=== PATIENT | female | born 1985 | race Caucasian/White ===

== ENCOUNTER 2019-05-28 09:24 | Inpatient (IN) | payer SELFPAY ==
[2019-05-28] MEDS ORDERED: Fentanyl 100 MCG/2 ML VIAL ONE ×2 (12:07→18:45)
[2019-05-28] MEDS ORDERED: cefTRIAXone\\ROCEPHIN 2 GM VIAL ONE (12:08)
[2019-05-28] MEDS ORDERED: Sodium Chloride 0.9% 200 ML ONE (12:08)
[2019-05-28] MEDS ORDERED: Azithromycin 500 MG VIAL ONE (12:08)
[2019-05-28 12:16] LABS: Bilirubin Negative (Negative); Blood, Urine Trace (Negative); Clarity Clear (Clear); Glucose, Urine (Dipstick) Normal (Negative); Leukocyte Negative Leu/uL (Negative); Nitrite Negative (Negative); Protein, Urine (Dipstick) 50 mg/dL (Neg-Trace)
[2019-05-28 12:25] LABS: Hemoglobin 14.5 g/dL (12.0-16.0); Mean Corpuscular HGB CONC 32.3 g/dL (32.0-36.0); Mean Corpuscular Hemoglobin 29.4 pg (27.0-31.0); Platelet Count 187 thou/uL (130-400); RBC Distribution Width 13.2 % (11.5-14.5); Red Blood Cell (RBC) Count 4.93 mill/uL (4.20-5.40); White Blood Cell (WBC) Count 6.9 thou/uL (4.8-10.8)
[2019-05-28 12:25] LABS: Bacteria/HPF None Seen HPF (None Seen)
[2019-05-28 12:40] LABS: Band 22 % (5-11); Lymphocytes 15 % (21-51); MDiff Complete? YES; Monocytes 4 % (0-10); Neutrophil 58 % (42-75); Platelet Morphology Comment Appears Adequate; RBC Morphology Normal; Vacuoles SLIGHT
[2019-05-28] MEDS ORDERED: Acetaminophen 500 MG TAB ONE ×2 (13:01→19:59)
[2019-05-28 13:19] LABS: Pregnancy Test - Urine (BHCG) Indeterminate (Negative)
[2019-05-28 13:20] LABS: Specific Gravity Greater than 1.060 (1.002-1.036)
[2019-05-28 13:21] LABS: Pregu Control Bar Appear? NO (CONTROL BAR)
[2019-05-28] MEDS ORDERED: Ondansetron PF 4 MG/2 ML Vial ONE (13:48)
[2019-05-28 14:14] LABS: BHCG - Serum Negative (NEGATIVE); Pregs Control Background? CLEAR/WHITE (CLR/WHITE); Pregs Control Bar Appear? YES (CONTROL BAR)
[2019-05-28] MEDS ORDERED: Magnevist 469MG/ML 20 ML VIAL ONE (15:37)
--- NOTE | 2019-05-28 17:04 | MRI ---
MRI Abdomen W WO Con History: Abdominal pain. Comparison: CT angiogram chest same day Findings: Multiplanar multisequence MRI of the abdomen was performed prior to and after the intraveno us administration of contrast. No pleural effusion. No hydronephrosis. Adrenal glands unremarkable. No intrahepatic or extrahepatic biliary dilatation. 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 There is an ill-defined area of abnormal hyperenhancement in hepatic segment VIII which corresponds to abnormal signal on the out of phase T1 sequence with the remainder the adjacent liver losing signal. This masslike area of the hepatic segment VIII corresponds to the CT angiogram findings. No associated T2 signal. Adrenal glands are unremarkable. No hydronephrosis. No dilated loops of bowel in the abdomen. Impression: 1. 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 There is also likely a component of portal venous shunting. Follow-up liver protocol MRI in 6 months recommended to evaluate for change. 2. 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 Transcribed Date/Time: 05/28/2019 6:46 PM
[2019-05-28] MEDS ORDERED: Enoxaparin Sodium 100 MG/ML SYRINGE ONE (19:12)
[2019-05-28] MEDS ORDERED: Fentanyl 100 MCG/2 ML VIAL SLOW IVP PRN (21:37)
[2019-05-28] MEDS ORDERED: Piperacillin/Tazobactam 4.5 GM in Sodium Chloride 0.9% 100 ML IVPB SCH (21:45)
[2019-05-28] MEDS ORDERED: Lactated Ringer's 1,000 ML IV SCH (21:45)
[2019-05-28] MEDS ORDERED: Guaifenesin DM 100-10/5 ML UDCUP PO PRN (21:57)
[2019-05-28 22:13] VITALS: BMI 30.2
--- NOTE | 2019-05-28 23:11 | HP ---
PRIMARY CARE PHYSICIAN: Hanna Red DO. CHIEF COMPLAINT: Chest pain, back pain, upper respiratory symptoms x2. HISTORY OF PRESENT ILLNESS: This is a 33-year-old obese female smoker, with no reported chronic medical comorbidities, who presented to a tertiary ER in [place] for 2-day history of upper respiratory tract symptoms associated with chest pain and back pain, prompting further evaluation. 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 Furthermore, she reports her daughter recently had the flu. She reports Friday having bifrontal headaches and a left-sided earache and took some Sudafed at night. She also notes associated complaints of sore throat, chest congestion, subjective fevers, complaints of myalgias but denies any rhinorrhea, nausea, vomiting, diarrhea. She slept all day and took NyQuil overnight and evening experiencing pain in her mid to upper back. This morning she had some productive yellowish phlegm and sought evaluation and called the ER. While there, she noted some sharp pain in her mid to upper abdomen. She reports being increasingly sedentary over the last several days, but denies any lower extremity pain or swelling. She denies any dyspnea. She reports sores in her mouth. In the emergency room, workup with a chest x-ray was unremarkable. CTA was negative for pulmonary embolism and suggested possibly a mild haziness in the right upper lobe, but incidentally noted a 3.7 cm enhancement in the liver dome. Recommending further dedicated CT versus MRI if clinically necessary. CBC was unremarkable, but differential did reveal 22 bands. Chemistries were unremarkable and the hCG was negative. Urinalysis; specific gravity was greater than 1.060. The patient was administered Rocephin and Zithromax and transferred to [facility] [place]. 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 Liver function test was unremarkable. The patient was administered weight-based Lovenox injection and IV Zosyn and IV fentanyl. On-call GI and Hematology/Oncology were consulted. At bedside, the patient denies any complaints of abdominal pain at this time. Her predominant complaints are upper respiratory tract symptoms and cough and congestion. She notes her father has a history of blood clots approximately 3 years ago in his late 40s, but it is reported by her ER physician that a prior hypercoagulable workup was negative. The patient denies any personal history of venous thromboembolism. She denies any recent travel or complains of hemoptysis. She did not receive her influenza vaccine this season. PAST MEDICAL HISTORY: Obesity, nicotine dependence. PAST SURGICAL HISTORY: Cholecystectomy. Last menstrual period, early April 2019. The patient is a G2, P1. SOCIAL HISTORY: The patient smokes one-half pack per day. She denies any alcohol or illicit drug use. She lives with her family, 12-year-old child and siblings. REVIEW OF SYSTEMS: Pertinent positives as per HPI. Remainder of review of systems negative. HOME MEDICATIONS: Reviewed as per admission medication reconciliation. FAMILY HISTORY: The patient reports her father had lower extremity thrombus in his late 40s. PHYSICAL EXAMINATION: VITAL SIGNS: Temperature 101.4, pulse 96-111, blood pressure 111/72, oxygen saturation 96% on room air, respirations 16-18. GENERAL APPEARANCE: This is a young female who is awake, alert, oriented, coherent, lucid, nontoxic in appearance, speaking in full complete sentences. HEENT: Normocephalic, atraumatic. No facial asymmetry. Pupils equally round. Extraocular muscles intact. Moist mucous membranes. There is excoriations noted in the tongue as well as in the roof of the soft palate. There is posterior pharyngeal erythema with increased vascularity noted in the posterior pharynx. There is increased erythema on bilateral air canals with no tragus tenderness to palpation. NECK: Supple. CARDIOVASCULAR: S1, and S2. Regular rate and rhythm. No harsh murmurs. No reproducible chest wall tenderness to palpation. LUNGS: Bilateral equal air entry on posterior auscultation. Nonlabored respirations. No wheezing or rales. Symmetrical chest expansion. ABDOMEN: Soft, nondistended, nontender to deep palpation in the epigastrium, right upper quadrant. Normoactive bowel sounds. EXTREMITIES: No edema, cyanosis, or deformities, bilateral upper and lower extremities. SKIN: Warm to touch without rash, pallor, or abrasion. LABORATORY VALUES: WBC 6.9, H and H 14.5/44.8, platelets 187. Differential; 58 neutrophils, 22 bands. Urinalysis; specific gravity greater than 1.060 with 50 protein, 20 ketones, 2.0 urobilinogen, trace blood. test negative. Chemistry; sodium 137, potassium 3.6, chloride 104, bicarb 23, glucose 105, BUN creatinine 9/0.87, GFR 76, total bilirubin 0.4, alkaline phosphatase 61, lipase 33. Albumin 4.1, CK 76, AST 30, AST 37, ALT 43, alkaline phosphatase 61. Serum test negative x2. Troponin I negative x1. IMAGING DATA: One-view chest x-ray on 05/28/2019, reveals no acute thoracic findings. CTA chest and thorax from 05/28/2019, reveals [id number] sensitivity showing no evidence of PE. No major infiltrate although tiny patchy area in right upper lobe. Enhancing lesion in the dome of the right lobe of the liver with the main part measuring by 3.7 cm in size and may have an adjacent part to it, most likely hemangioma, possibly more than 1 with MRI recommended as followup to best characterized findings. 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 There is also likely a component of portal venous shunting. Recommended MRI follow up liver protocol in 6 months for evaluation of change. Findings also concerning for an intraluminal web at the distal main portal vein extending into the right portal vein suggesting a partially recanalized peripheral portal vein. ASSESSMENT: 1. Upper respiratory tract infection of unspecified etiology. The patient reports a prodrome of upper respiratory tract symptoms and exposure to sick contacts. We will check an influenza panel and a strep throat culture. She received empiric IV Rocephin and IV Zithromax at tertiary ER and has received IV Zosyn in our ER. We will continue empiric antibiotics at this time and further supportive therapies. Noted unremarkable CBC but with evidence of bandemia and fevers. 2. Suspected portal vein thrombus with possible infectious component. The patient had noted findings on CTA chest suggesting hyperintensity in liver and a followup MRI was done with results noted showing concerns for portal vein thrombosis with collateralization. Liver function tests unremarkable. The patient's pain is not severe at this time. However, she endorses history of venous embolism in her father and reported complaints of immobility. We will continue weight-based Lovenox injections. ER has consulted GI and Hematology/Oncology for further assessment. We will continue empiric antibiotics in the setting of unspecified fevers. Unremarkable CBC, but noted evidence of bandemia. Continue IV Zosyn for empiric intraabdominal coverage. If prolonged antibiotics need to be considered, a PICC line may be necessary and we will hold off on any oral anticoagulation at this time. 3. Nicotine dependence. The patient requires cessation counseling. 4. History of deep venous thrombosis in patient's father in late 40s. Details are vague and unspecified. Per discussion with ER physician, hypercoagulable workup was unremarkable. 5. Deep venous thrombosis prophylaxis: Therapeutic anticoagulation. 6. Check a.m. labs, 05/29/2019. 7. Code status: Full code. 8. Disposition: Inpatient Med/Surg admission. Job ID: [id number]
[2019-05-28] MEDS ORDERED: Sodium Chloride 0.65% Nasal 44 ML BOT EA NARE PRN (23:43)
[2019-05-29] MEDS ORDERED: Ibuprofen 600 MG TAB PO PRN (01:50)
[2019-05-29] MEDS ORDERED: Oseltamivir 75 MG CAP PO SCH (02:00)
[2019-05-29 06:29] LABS: #Lymphocytes 1.2 thou/uL (1.20-3.40); #Monocytes 0.3 thou/uL (0.11-0.59); #Neutrophils 4.1 thou/uL (1.40-6.50); %Basophils 0.5 % (0.0-1.0); %Eosinophils 0.5 % (0.0-10.0); %Monocytes 5.2 % (0.0-10.0); %Neutrophils 72.7 % (42.0-75.0); Hemoglobin 13.9 g/dL (12.0-16.0); Mean Corpuscular HGB CONC 32.1 g/dL (32.0-36.0); Mean Corpuscular Hemoglobin 29.4 pg (27.0-31.0); Mean Corpuscular Volume 91.6 fL (78.0-98.0); Mean Platelet Volume 8.9 fL (7.4-10.4); Platelet Count 171 thou/uL (130-400); RBC Distribution Width 13.1 % (11.5-14.5); Red Blood Cell (RBC) Count 4.73 mill/uL (4.20-5.40); White Blood Cell (WBC) Count 5.7 thou/uL (4.8-10.8)
[2019-05-29 06:54] LABS: ALT (SGPT) 25 U/L (8-55); AST (SGOT) 22 U/L (5-34); Albumin 3.2 g/dL (3.5-5.0); Alkaline Phosphatase 50 U/L (40-110); Anion Gap 10 mmol/L (10-20); BUN (Urea Nitrogen) 5 mg/dL (7.0-18.7); Bilirubin, Total 0.3 mg/dL (0.2-1.2); Calc. Creatinine Clearance 165 mL/min (70-130); Calcium 7.7 mg/dL (7.8-10.44); Carbon Dioxide 20 mmol/L (22-29); Chloride 107 mmol/L (98-107); Estimated GFR-MDRD Greater than 90; Globulin 2.6 g/dL (2.4-3.5); Glucose 91 mg/dL (70-105); Potassium 3.3 mmol/L (3.5-5.1); Protein, Total 5.8 g/dL (6.0-8.3); Sodium 134 mmol/L (136-145)
[2019-05-29] MEDS: Oseltamivir 75 MG CAP PO SCH ×2 (08:32→20:39)
[2019-05-29] MEDS ORDERED: traMADol HCl 50 MG TAB PO PRN (08:36)
[2019-05-29] MEDS ORDERED: Enoxaparin Sodium 100 MG/ML SYRINGE SC SCH (09:00)
[2019-05-29] MEDS: traMADol HCl 50 MG TAB PO PRN ×2 (10:00→20:42)
[2019-05-29] MEDS: diphenhydrAMINE 50 MG/ML VIAL IVP PRN ×2 (10:03→20:42)
[2019-05-29] MEDS: Ondansetron PF 4 MG/2 ML Vial IVP PRN (11:11)
[2019-05-29 15:03] LABS: PTT 31.4 SEC (22.9-36.1); Prothrombin Time 12.7 SEC (12.0-14.7)
[2019-05-29 15:04] LABS: D-Dimer Test 0.31 *mcg/mL (0.27-0.43)
--- NOTE | 2019-05-29 15:59 | CON ---
DATE OF CONSULTATION: REASON FOR CONSULTATION: Questionable portal vein thrombosis, fever. HISTORY OF PRESENT ILLNESS: Ms. Gauthier is a 33-year-old female, who was called by the ER last night, reporting that she had portal vein thrombosis, fever, abdominal discomfort. On getting further details, it seemed that she did not have an acute thrombosis, but had had possible recanalization of portal vein based on an MRI test. History was not very good, and empirically, she had cultures drawn and was placed on blood thinners and antibiotics. Subsequently, she had a flu test, which has come back positive for influenza A. In talking with her, she states that starting Friday, which is 3 days ago, she went home from work with a headache and then awoke with sore throat, scratchy mucosal membranes, myalgias, arthralgias especially in the legs and upper back, and fever and chills. She developed a cough as well. Her daughter had the flu about 2 weeks ago. She took some Nyquil, and then when she woke up yesterday, she had some upper back pain right below her neck and had a productive cough and went to the emergency room in [place]. There, she had some labs and then a CT angio of the chest was done to make sure she did not have a pulmonary embolus presumptively and this raised questions about abnormalities in the right lobe of the liver. CBC did show 22 bands with normal white count. test was negative. Urinalysis was negative except for signs of dehydration. She was given Rocephin and Zithromax and sent to the emergency room here in [place]. 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 Additionally, on that study, there were concerns of a web or partial recanalization of the right portal vein. There are no signs of portal hypertension. Her liver function tests were normal. When she was admitted, the hospitalist saw her, I got the history of the URI like symptoms and got a flu test, which was positive, and the actual diagnosis for why she came to the emergency room in [address] was ultimately made. Presently, she is feeling better today, although she does still have some cough. She is holding down liquids. She has had no diarrhea. She denies any history of recurrent abdominal pain now or in the past except for some very mild discomfort earlier yesterday. She denies any history of abnormal imaging of the liver or abdomen. She reports she had a gallbladder removed in this hospital about 10 years ago and had been sick for about 6 months before that. She denies any history of appendicitis or pelvic infections. She does smoke, but denies taking control pills or having IUD. She denies any prior history of blood clots that she knows of. Her father had blood clot in his leg in his 50s. The patient did not receive a flu vaccine this year. PAST MEDICAL HISTORY: She is a little bit overweight. She denies other medical problems. She smokes half pack per day. PAST SURGICAL HISTORY: Cholecystectomy. 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 SOCIAL HISTORY: She smokes half pack per day. She does not drink alcohol. She does not use drugs. She lives with her family, 12-year-old child and siblings. 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 REVIEW OF SYSTEMS: As per HPI. She is not short of breath now. She is still having some fevers at times. She feels she is breathing well. She has no dysuria. She has no abdominal pain, nausea, or vomiting. HOME MEDICATIONS: None. MEDICATIONS HERE: 1. Tylenol. 2. Benadryl. 3. Robitussin. 4. Ibuprofen. 5. Zofran. 6. She received a dose of Tamiflu. 7. She is receiving some Ultram. 8. IV fluids. 9. She is receiving Zosyn and full-dose anticoagulation with Lovenox, both of which have been stopped now by Hematology. PHYSICAL EXAMINATION: VITAL SIGNS: Pulse anywhere from 99 to 106, temperature max 101 to 100 presently, respirations 18, saturation 94%, blood pressure 98/63 to 93/60. GENERAL: She is warm to the touch. HEENT: Oropharynx was slightly erythematous. LUNGS: Notable for rhonchi in the bases. HEART: Sinus tachycardia. ABDOMEN: Soft and nontender with no rebound or guarding. There is very mild right-sided abdominal tenderness. She reports this is where she had her Lovenox shot recently. There is no bruising. There is no palpable hepatosplenomegaly. There is no CVA tenderness. EXTREMITIES: No clubbing, cyanosis, or edema. SKIN: Without rashes or lesions. LABORATORY DATA: White count 5.7, hemoglobin 13.9, platelet count 171, bands are 22% last night at 1212 hours. She had a hemoglobin of 15.4 yesterday on presentation yesterday morning. INR is 1. D-dimer was 0.8 yesterday at the outside ER. Sodium 134, potassium 3.3, BUN and creatinine 5 and 0.6. Liver function tests are normal. Protein is 5.8 and albumin 3.2. Serum test negative. IMAGING TESTS: CAT scan of the chest and the MRI reports reviewed and images reviewed with Radiology for about 20 minutes. ASSESSMENT: This is a 33-year-old, who came to the hospital for the flu. She has some respiratory symptoms, probably has some pneumonitis as well. She had some fever. She is a bit dehydrated. The findings on the MRI, which were precipitated by some findings in the liver on a PE protocol CT, likely all related to vascular anomalies of her aberrant arterial circulation in the hepatic artery on the left side where the left hepatic artery comes in the left gastric artery. There is some finding of some portal venous shunting going on as well that gives the appearance of abnormalities of mass, which does not hold up on imaging studies and portal venous arterial phases. There is one concerning feature of her MRIs that she may have a web or findings that look like a previous clot with recanalization in the right portal system. The only really risk factor she has for this is she had a pretty bad gallbladder disease many years ago, but she is not aware of any issues with this in the past or any MR imaging in the past; however, she has not had any personal history of blood clots. She has not had any recent acute abdominal pain. The findings of the MRI do not show any signs of acute clot in the portal vein. It really just needs a question whether she recently had evaluation for hypercoagulable state. With regard to question of hypercoagulable state, there was a concern for family history, although it seems to be very straightforward family history of a father with blood clot in his leg in his 50s with no other family member has a clot and no recurrence in his part. RECOMMENDATIONS: 1. At this time, I think the antibiotics can be stopped. I agree with Dr. Yao. Unless there is some thought that she has a bacterial pneumonitis or pneumonia, which the CT did not show any major infiltrates that she had yesterday of the chest. 2. Furthermore, I think the blood thinners can be stopped. There is no evidence of acute portal vein thrombosis and it is unclear whether she needs a chronic anticoagulation at this time and the fact that it is pretty clear that she does not unless she is found to have some underlying coagulation defect. Dr. Yao informed that he is going to check a coagulation panel on her. 3. At this point in time, she feels well and it is okay from Internal Medicine from the standpoint of her flu, I think she can go home. If they want to keep her for the flu, that is fine as well. 4. I will like to see her back in a few months in the office and then as long as she is doing well, we would consider reimaging her liver in 6 months to make sure everything they are stable. Job ID: [id number]
[2019-05-29 17:06] LABS: BHCG - Serum Negative (NEGATIVE); Pregs Control Background? CLEAR/WHITE (CLR/WHITE); Pregs Control Bar Appear? YES (CONTROL BAR)
[2019-05-29] MEDS: Acetaminophen 325 MG TAB PO PRN ×2 (17:10→23:23)
--- NOTE | 2019-05-29 17:18 | PDOC.HOSPP ---
- Subjective Encounter Date: 05/29/19 Encounter Time: 09:40 Subjective: Pt seen for followup re: influenza A infection. Feels ill. - Objective Vital Signs & Weight: Vital Signs (12 hours) Temp Pulse Resp BP Pulse Ox 05/29/19 16:57 100.0 F H 98 18 99/68 98 05/29/19 11:39 98.7 F 99 16 92/60 94 L 05/29/19 09:30 103 H 05/29/19 08:37 97 05/29/19 08:00 99.9 F H 112 H 18 98/63 97 Weight Weight 187 lb 1 oz Result Diagrams: 05/29/19 06:00 05/29/19 06:00 Additional Labs: Labs and MARs reviewed by [facility] Hospitalist ROS - Review of Systems Constitutional: reports: fever Respiratory: reports: cough, dry. denies: shortness of breath, hemoptysis, SOB with excertion, pleuritic pain, sputum, wheezing Cardiovascular: denies: chest pain, palpitations, orthopnea, paroxysmal noc. dyspnea, edema, light headedness Gastrointestinal: denies: nausea, vomiting, abdominal pain, diarrhea, constipation, melena, hematochezia - Medication Medications: Active Medications Generic Name Dose Route Start Last Admin Trade Name Freq PRN Reason Stop Dose Admin Acetaminophen 650 mg 05/28/19 21:12 05/29/19 17:10 Tylenol PO 650 mg Q4H PRN Administration Headache/Fever/Mild Pain (1-3) Diphenhydramine HCl 25 mg 05/29/19 09:24 05/29/19 10:03 Benadryl IVP 25 mg Q6H PRN Administration Allergies Ibuprofen 600 mg 05/29/19 01:50 05/29/19 09:00 Motrin PO 600 mg Q6H PRN Administration Fever > 101 Ondansetron HCl 4 mg 05/29/19 10:53 05/29/19 11:11 Zofran IVP 4 mg Q6H PRN Administration Nausea/Vomiting Oseltamivir Phosphate 75 mg 05/29/19 09:00 05/29/19 08:32 Tamiflu PO 06/02/19 09:01 75 mg BID PRAKASH Administration Tramadol HCl 100 mg 05/29/19 08:36 05/29/19 10:00 Ultram PO 100 mg Q6H PRN Administration Severe Pain (7-10) - Exam General - other findings: Obese Eye: anicteric sclera ENT: moist mucosa Neck: supple Heart: RRR, no rubs Respiratory: wheezes Gastrointestinal: soft, non-tender Psychiatric: normal affect, normal behavior Hosp A/P (1) Influenza A Code(s): J10.1 - FLU DUE TO OTH IDENT INFLUENZA VIRUS W OTH RESP MANIFEST Status: Acute (2) Nicotine dependence Code(s): F17.200 - NICOTINE DEPENDENCE, UNSPECIFIED, UNCOMPLICATED Status: Chronic (3) Portal vein thrombosis Code(s): I81 - PORTAL VEIN THROMBOSIS Status: Ruled-out - Plan Continue Tamiflu. Continue IV fluids. Check serum test. Likely home 24 h
--- NOTE | 2019-05-29 19:23 | CON ---
DATE OF CONSULTATION: 05/29/2019 REASON FOR CONSULTATION: Possible portal vein thrombosis. 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 There was a question of fever and chills as well. Her daughter had flu two weeks prior to admission. She began to develop upper mid scapular back pain and went to the emergency room in [place]. A CTA of the chest to rule out pulmonary embolus was performed, which showed no pulmonary emboli. However, there were no unexpected findings in the upper abdomen in the liver suggesting a liver mass. 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 There was no other evidence of liver or portal disease. Subsequent testing for flu was diagnostic of influenza A. There is no prior family history of coagulation disorder except for her father, who does have a lower extremity thrombosis in his 50s. She has had a , which was uneventful. She has never had a thrombosis. She has never had significant abdominal pain. Her bowel habits have been reasonably normal. I am asked to see the patient at this time to provide further management recommendations regarding the incidental finding. ALLERGIES: NONE. MEDICATIONS: None at home. MEDICAL ILLNESS: She has no significant medical problems, although she has had gallstones and underwent a cholecystectomy in the past. PAST SURGICAL HISTORY: Surgery, cholecystectomy only. SOCIAL HISTORY: She smokes half a pack per day, but does not drink alcohol. She does not use illicit drugs. She lives with her family and a 12 year old child. testing was negative and she is not currently on control pills. REVIEW OF SYSTEMS: See history of present illness. Otherwise, she denies significant cardiopulmonary, GI, , musculoskeletal, or neurological complaints. PHYSICAL EXAMINATION: VITAL SIGNS: Temperature 98.7, pulse 99 and regular, respirations 16, and blood pressure 92/60. GENERAL: The patient is a well-developed and well-nourished woman, in no acute distress. She is sitting up in bed watching television. She is alert, oriented , and cooperative. HEENT: The extraocular moves are intact. The pupils are equal, round, and reactive to light. NECK: Supple. LUNGS: Clear. CARDIOVASCULAR: Regular rate and rhythm without murmur, rub, gallop, or click. ABDOMEN: No tenderness, organomegaly, masses, bruits, or ascites. EXTREMITIES: No clubbing, cyanosis, or edema. SKIN: Normal. LYMPH: No adenopathy. MUSCULOSKELETAL: No active arthritis. NEUROLOGIC: Nonfocal. LABORATORY DATA: White blood cell count 6.9, hemoglobin 14.5, and platelet count 187,000. There is a left shift with 22% bands on yesterday's CBC. This morning , there is no such left shift. Chemistries revealed sodium 134, potassium 3.3, chloride 107, and carbon dioxide 20. Creatinine 0.66. Albumin is 3.2 and calcium 7.7. Liver function studies are normal. Qualitative serum test is negative. 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 There is evidence of a possible intraluminal web in the distal main portal vein extending into the right portal vein with recanalization suggesting an old peripheral portal venous thrombus. IMPRESSION: 1. Acute viral illness with evidence of influenza A. 2. 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 This is an incidental finding with no clinical evidence of same. RECOMMENDATIONS: I discussed the case at some length with Dr. Martin Dela Cruz, Gastroenterology, and we both discussed the case with Radiology, Dr. Crystal. Dr. Crystal is convinced that the finding is real indicatng an old portal vein clot , although we have no clinical evidence of liver disease or a prior intraabdominal thrombotic event. Hopefully , she will be able to be discharged soon after stabilization and treatment for influenza A. I have ordered a thrombophilia profile, which we will follow up as an outpatient. I suspect there will be no evidence of a thrombotic diathesis and the findings will be simply followed in the future with repeat imaging. Thanks very much for allowing me to provide my recommendations. Job ID: [id number] [facility]ITALShireen
[2019-05-30 08:59] LABS: #Lymphocytes 1.3 thou/uL (1.20-3.40); #Monocytes 0.2 thou/uL (0.11-0.59); #Neutrophils 2.8 thou/uL (1.40-6.50); %Basophils 0.4 % (0.0-1.0); %Eosinophils 0.6 % (0.0-10.0); %Lymphocytes 30.3 % (21.0-51.0); %Monocytes 4.1 % (0.0-10.0); %Neutrophils 64.6 % (42.0-75.0); Mean Corpuscular HGB CONC 32.9 g/dL (32.0-36.0); Mean Corpuscular Volume 91.3 fL (78.0-98.0); Mean Platelet Volume 8.9 fL (7.4-10.4); Platelet Count 169 thou/uL (130-400); RBC Distribution Width 13.2 % (11.5-14.5); White Blood Cell (WBC) Count 4.3 thou/uL (4.8-10.8)
[2019-05-30] MEDS: Acetaminophen 325 MG TAB PO PRN (09:00)
[2019-05-30] MEDS: diphenhydrAMINE 50 MG/ML VIAL IVP PRN (09:00)
[2019-05-30] MEDS: Ondansetron PF 4 MG/2 ML Vial IVP PRN (09:00)
[2019-05-30] MEDS: Oseltamivir 75 MG CAP PO SCH (09:00)
[2019-05-30] MEDS: traMADol HCl 50 MG TAB PO PRN (09:09)
[2019-05-30 09:24] LABS: Anion Gap 13 mmol/L (10-20); BUN (Urea Nitrogen) 5 mg/dL (7.0-18.7); Calc. Creatinine Clearance 146 mL/min (70-130); Calcium 8.4 mg/dL (7.8-10.44); Carbon Dioxide 22 mmol/L (22-29); Chloride 103 mmol/L (98-107); Estimated GFR-MDRD 90; Glucose 80 mg/dL (70-105); Potassium 3.4 mmol/L (3.5-5.1); Sodium 135 mmol/L (136-145)
[2019-05-30] MEDS ORDERED: Potassium Chloride 20 MEQ TAB PO SCH (12:45)
[2019-05-30 16:00] VITALS: BP 103/68; TEMP 98.2
--- NOTE | 2019-05-31 08:24 | DIS ---
DATE OF ADMISSION: 05/28/2019 DATE OF DISCHARGE: 05/30/2019 PRIMARY CARE PROVIDER: Hanna Red, DO DISCHARGE DIAGNOSES: 1. Influenza A infection. 2. Sepsis secondary to influenza A infection. 3. Questionable portal vein thrombosis. CONDITION: Condition of the patient on the day of discharge: Stable. I assessed Ms. Gauthier on the day of discharge. She denies any chest pain or shortness of breath. She feels better. Vital signs are stable. S1 and S2 are heard, regular. Lungs are clear to auscultation bilaterally. DISCHARGE MEDICATIONS: Tamiflu 75 mg 2 times a day, 6 more doses. CONSULTATIONS DURING THIS HOSPITALIZATION: 1. Gastroenterology, Dr. Dela Cruz. 2. Hematology/Oncology, Dr. Yao. POST ACUTE CARE FOLLOWUP: The patient is advised to follow up with primary care provider in 3 days, with Dr. Dela Cruz in a couple of months and with Dr. Yao in a couple of weeks. HOSPITAL COURSE: Ms. Gauthier is a pleasant 33-year-old lady, who was admitted to [facility] on May 28, 2019, for upper respiratory symptoms. Please refer to Dr. Alvarez's history and physical note dated May 28, 2019, for further details. There was also a questionable portal vein thrombosis. Gastroenterology and Hematology Services were consulted. Gastroenterology Service reviewed her scans with the radiologist and it was felt that there is no acute portal vein thrombosis going on. Gastroenterology Service will follow up with her as outpatient and repeat CT scans in 6 months' time to make sure the findings are stable. Hematology Service have sent out coagulation panel. At the time of this dictation, the results are pending. She is advised to follow up with Rheumatology Service in a couple of weeks for the results. Her influenza screen was positive for influenza A. She was initially started on antibiotics, but these were subsequently discontinued and she was treated with Tamiflu. She improved clinically and is being discharged home in a stable condition. On the day of discharge, she has sodium 135, potassium 3.4, which is being replaced, creatinine 0.75, white count 4300, hemoglobin 15, and platelet count 169,000. Many thanks for allowing me to participate in your patient's care. Please feel free to contact me with any questions or concerns. DISCHARGE DESTINATION: Home. TIME SPENT: Total amount of time spent in coordinating this discharge: 32 minutes. DIET: Regular. ACTIVITY: Ad amie. Please note that the patient's final blood culture results are also pending at the time of this dictation. She is advised to follow up with primary care provider for the same. Job ID: [id number]
[2019-05-31 13:09] LABS: Protein C Activity 75 % (78-152)
[2019-05-31 13:10] LABS: Factor VIII Test 133.5 % ACTIVE (56-157)
[2019-05-31 13:28] LABS: HEX PHOS LA Tube 1 58.9 SEC; HEX PHOS LA Tube 2 51.6 SEC; Hexagonal Phospholipid Neut 7.2 SEC (0-8.0)
[2019-06-01 11:37] LABS: Cardiolipin IgA Ab 2.7 APL-U/mL (<14 Negative); Cardiolipin IgG Ab Less than 0.5 GPL-U/mL (<10 Negative); Cardiolipin IgM Ab Less than 0.8 MPL-U/mL (<10 Negative); EliA APS New Method **** NEW METHOD ****
--- NOTE | 2019-06-01 21:43 | PQF ---
Juany Gauthier DAVID [id number] CLINICAL DOCUMENTATION CLARIFICATION FORM: POST DISCHARGE Addendum to original discharge summary date: ____ Late entry note date: __ DATE: 06/01/2019 ATTN: Oscar Gong Please exercise your independent, professional judgment in responding to the clarification form. Clinical indicators are provided on the bottom of this form for your review Please check appropriate box(s) to clarify if the following diagnosis has been ruled in or ruled out: Portal vein thrombus [ ] Ruled in diagnosis [ ] Continue to treat [ ] Resolved [ x ] Ruled out diagnosis [ ] Cannot rule out diagnosis [ ] Other diagnosis [ ] Unable to determine In addition, please specify: Present on Admission (POA): [ ] Yes [ ] No [ ] Unable to determine For continuity of documentation, please document condition throughout progress notes and discharge summary. Thank You. CLINICAL INDICATORS - SIGNS / SYMPTOMS / LABS H&P p1 05/28 Dr. Alvarez 2-day history of upper respiratory tract symptoms associated with chest pain and back pain, prompting further evaluation. H&P p1 05/28 Dr. Alvarez she reports her daughter recently had the flu. H&P p1 05/28 Dr. Alvarez She reports Friday having bifrontal headaches and a left-sided earache and took some Sudafed at night. She also notes associated complaints of sore throat, chest congestion, subjective fevers, complaints of myalgias but denies any rhinorrhea, nausea, vomiting, diarrhea. H&P p1 05/28 Dr. 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 All Rights Reserved [email or web address] [not provided] MTDD
--- NOTE | 2019-06-01 21:44 | PQF ---
Juany Gauthier DAVID [id number] CLINICAL DOCUMENTATION CLARIFICATION FORM: POST DISCHARGE Addendum to original discharge summary date: ____ Late entry note date: __ DATE: 06/01/2019 ATTN: Oscar Gong Please exercise your independent, professional judgment in responding to the clarification form. Clinical indicators are provided on the bottom of this form for your review Diagnosis: Sepsis Present on Admission (POA): [ x ] Yes [ ] No [ ] Unable to determine Coding guidelines require hospitals to identify whether a diagnosis was present on admission (POA) or not. To accurately assign the appropriate POA indicator, this information must be clearly documented within the medical record. CLINICAL INDICATORS - SIGNS / SYMPTOMS / LABS H&P p1 05/28 Dr. Alvarez 2-day history of upper respiratory tract symptoms associated with chest pain and back pain, prompting further evaluation. H&P p1 05/28 Dr. Alvarez she reports her daughter recently had the flu. H&P p1 05/28 Dr. Alvarez She reports Friday having bifrontal headaches and a left-sided earache and took some Sudafed at night. She also notes associated complaints of sore throat, chest congestion, subjective fevers, complaints of myalgias but denies any rhinorrhea, nausea, vomiting, diarrhea. H&P p1 05/28 Dr. 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 All Rights Reserved [email or web address] [not provided] MTDD
== END 2019-05-30 17:25 | disposition home or self-care (01) | DRG 872 ==
LOC: ERS 09:24 → T4-A 21:44
PROVIDERS: ADMIT Hospitalist; ATTEND Hospitalist
DX: A41.89 Other specified sepsis (principal); J10.1 Influenza due to other identified influenza virus with other respiratory manifestations; E66.9 Obesity, unspecified; F17.200 Nicotine dependence, unspecified, uncomplicated; Z68.30 Body mass index [BMI] 30.0-30.9, adult; Z90.49 Acquired absence of other specified parts of digestive tract
CPT/HCPCS: 36415; 74183; 80048; 80053; 81003; 81015; 81025; 81240; 81241; 83090; 84703; 85025; 85240; 85300; 85303; 85305; 85307; 85379; 85598; 85610; 85730; 86147; 86850; 86900; 86901; 87040; 87081; 87430; 87804; A9579; J0456; J0696; J1200; J1650; J2405; J2543; J3010; J3490